=== PATIENT | female | born 1975 | race Caucasian/White ===

== ENCOUNTER 2016-03-28 05:09 | Inpatient (IN) | payer OTHER ==
[2016-03-25 12:24] LABS: HEMATOCRIT 40.1 % (36.0-47.0); HEMOGLOBIN 13.7 g/dL (12.0-15.5); MEAN CORPUSCULAR HEMOGLOBIN 31.6 pg (27.0-33.4); MEAN CORPUSCULAR HGB CONC 34.1 g/dL (32.0-36.0); MEAN CORPUSCULAR VOLUME 93 fl (80-97); RED BLOOD COUNT 4.32 10^6/uL (3.72-5.28); RED CELL DISTRIBUTION WIDTH 12.9 % (11.5-14.0); WHITE BLOOD COUNT 7.8 10^3/uL (4.0-10.5)
[2016-03-25 12:25] LABS: APPEARANCE,URINE CLEAR; BILIRUBIN,URINE NEGATIVE (NEGATIVE); GLUCOSE, URINE NEGATIVE (NEGATIVE); KETONES,URINE NEGATIVE (NEGATIVE); LEUKOCYTE ESTERASE,URINE NEGATIVE (NEGATIVE); NITRITE,URINE NEGATIVE (NEGATIVE); PROTEIN,URINE NEGATIVE (NEGATIVE); URINE SPECIFIC GRAVITY 1.008; UROBILINOGEN,URINE NEGATIVE mg/dL (<2.0)
[2016-03-25 12:48] LABS: ANION GAP 13 (5-19); BLOOD UREA NITROGEN 11 mg/dL (7-20); CALCIUM 9.6 mg/dL (8.4-10.2); CARBON DIOXIDE 27 mmol/L (22-30); CHLORIDE 103 mmol/L (98-107); GLUCOSE 74 mg/dL (75-110); POTASSIUM 4.5 mmol/L (3.6-5.0); SODIUM 142.6 mmol/L (137-145)
--- NOTE | 2016-03-26 00:08 | EKG REPORT ---
SEVERITY:- NORMAL ECG - SINUS RHYTHM : Confirmed by: Thomas Reyes 26-Mar-2016 00:07:53
[~2016-03-28 05:09] MED LIST: CEFAZOLIN SODIUM 1 GM in DEXTROSE 5%-WATER 50 ML IV PRN; LIDOCAINE 0.5% INJ-PF (5 MG/ML) 50 ML SDV INJ PRN; RINGERS SOLUTION,LACTATED 1,000 ML IV PRN
[2016-03-28] MEDS ORDERED: ALBUTEROL SULFATE 0.083% NEB 2.5 MG/3 ML AMPUL NEB ONE (06:07)
[2016-03-28] MEDS ORDERED: ACETAMINOPHEN 100 ML IV ONE (07:01)
[2016-03-28] MEDS ORDERED: PROPOFOL INJ 200 MG/20 ML VIAL IV ONE (07:01)
[2016-03-28] MEDS ORDERED: MIDAZOLAM 2 MG/2 ML INJ ONE (07:01)
[2016-03-28] MEDS ORDERED: HYDROMORPHONE HCL INJ/PF 2 MG/ML AMPULE ONE (07:01)
[2016-03-28] MEDS ORDERED: FENTANYL CITRATE INJ/PF 250 MCG/5 ML AMPULE ONE (07:01)
--- NOTE | 2016-03-28 09:08 | OPERATIVE REPORT E ---
Operative Report NAME: JOSIAH HUDSON : 1975 AGE: 40Y DATE OF SURGERY: 03/28/2016 ROOM: OR PREOPERATIVE DIAGNOSES: 1. UTERINE LEIOMYOMA. 2. DYSMENORRHEA. POSTOPERATIVE DIAGNOSES: 1. UTERINE LEIOMYOMA. 2. DYSMENORRHEA. OPERATION: Total vaginal hysterectomy. SURGEON: NICOL KEARNS M.D. COMPLICATIONS: None. ANESTHESIA: General endotracheal. ESTIMATED BLOOD LOSS: 100 mL. INDICATIONS FOR PROCEDURE: The patient has symptomatic uterine leiomyoma and was unresponsive to usual outpatient management. She desired definitive therapy and usual risks, expectations, complications including bleeding, infection, anesthesia and damage to the organs and tissues have been discussed with the patient who understood. She wishes to proceed. PROCEDURE: The patient was taken to the operating room and placed in the modified lithotomy position. Once adequate anesthesia was ascertained, prepped and draped in the usual sterile manner for a vaginal hysterectomy. Via posterior colpotomy incision, the posterior cul-de-sac was entered without difficulty. Uterosacral ligaments were cross-clamped, suture ligated and held and cervix was then circumscribed. Bladder was advanced sequentially throughout the case, retracted anteriorly with the *narrow tonja* retractor until ultimately entry into the anterior cul-de-sac was done without difficulty. The uterine vessels, upper broad ligament and pedicles were suture ligated and then free tied throughout the case with 0 Vicryl stitch. The uterus and cervix were handed off the operative field. Pedicles were confirmed to be dry after being suture ligated and free tied. No enterocele formation was noted. The vagina was then closed in an anterior-posterior fashion with 0 Vicryl stitch with good hemostasis confirmed. Good urine output at the completion of the procedure. The patient had had a Tee catheter placed preoperative as well as a surgical time-out performed and antibiotics given. All sponge and needle counts were correct at the completion of the procedure. The patient was taken to the recovery room in stable condition. DICTATING PHYSICIAN: NICOL KEARNS M.D. [id number] PHY#: [id number] ID: [id number] JOB#: [id number] ACCT: [id number] cc:NICOL KEARNS M.D. > [facility]
[2016-03-28] MEDS ORDERED: MORPHINE SULFATE 10 MG/ML INJ INJ PRN (09:31)
[2016-03-28] MEDS ORDERED: MORPHINE SULFATE 10 MG/ML INJ IM PRN (09:32)
[2016-03-28] MEDS ORDERED: PROMETHAZINE HCL INJ 25 MG/1 ML VIAL IM PRN (09:33)
[2016-03-28] MEDS: FENTANYL CITRATE INJ/PF 100 MCG/2 ML AMPUL ONE ×2 (09:40→09:50)
[2016-03-28] MEDS ORDERED: KETOROLAC TROMETHAMINE INJ/PF 30 MG/1 ML SDV ONE (09:47)
[2016-03-28] MEDS ORDERED: MEPERIDINE HCL/PF INJ 25 MG/1 ML DISP.SYRIN IV PRN (09:49)
[2016-03-28] MEDS ORDERED: PROMETHAZINE HCL INJ 25 MG/1 ML VIAL IV PRN ×2 (09:49)
[2016-03-28] MEDS ORDERED: MORPHINE SULFATE 10 MG/ML INJ IV PRN (09:49)
[2016-03-28] MEDS ORDERED: FENTANYL CITRATE INJ/PF 100 MCG/2 ML AMPUL IV PRN ×3 (09:49)
[2016-03-28] MEDS ORDERED: OXYCODONE-ACETAMINOPHEN 5-325 MG TABLET PO PRN ×2 (09:49)
[2016-03-28] MEDS ORDERED: DIPHENHYDRAMINE HCL 50 MG/ML VIAL IV PRN (09:49)
[2016-03-28] MEDS ORDERED: KETOROLAC TROMETHAMINE INJ/PF 30 MG/1 ML SDV IV ONE (09:51)
[2016-03-28] MEDS ORDERED: DIPHENHYDRAMINE HCL 25 MG CAPSULE PO PRN (10:48)
[2016-03-28] MEDS: MORPHINE SULFATE 10 MG/ML INJ INJ PRN ×2 (11:08→18:35)
[2016-03-28] MEDS ORDERED: ALBUTEROL SULFATE HFA (90 MCG/PUFF) 200 PUFF/8.5 GM MDI IH PRN (11:15)
[2016-03-28] MEDS: IBUPROFEN 800 MG TABLET PO SCH ×2 (13:42→18:44)
[2016-03-28] MEDS ORDERED: RINGERS SOLUTION,LACTATED 1,000 ML IV PRN ×2 (13:52→13:55)
[2016-03-28] MEDS ORDERED: LIDOCAINE 2% INJ-PF (20 MG/ML) 10 ML AMPUL ONE (14:00)
[2016-03-28] MEDS ORDERED: PHENYLEPHRINE HCL INJ/PF 10 MG/1 ML SDV ONE (14:00)
[2016-03-28] MEDS ORDERED: SUCCINYLCHOLINE CHLORIDE INJ 200 MG/10 ML VIAL ONE (14:00)
[2016-03-28] MEDS ORDERED: ONDANSETRON HCL INJ/PF 4 MG/2 ML SDV ONE (14:00)
[2016-03-28] MEDS ORDERED: DEXAMETHASONE SOD PHOSPHATE INJ 4 MG/1 ML VIAL ONE (14:00)
[2016-03-28] MEDS: CEFAZOLIN SODIUM 1 GM in DEXTROSE 5%-WATER 50 ML IV SCH ×2 (14:59→21:42)
[2016-03-28] MEDS: OXYCODONE-ACETAMINOPHEN 5-325 MG TABLET PO PRN (17:24)
[2016-03-28] MEDS ORDERED: CYCLOSPORINE 0.05% OPH EMULSIO 0.4 ML DROPERETTE OS SCH (18:00)
[2016-03-28] MEDS ORDERED: BENZOCAINE/MENTHOL SORE THROAT LOZENGE BUCCAL PRN (23:36)
[2016-03-29] MEDS ORDERED: BENZOCAINE/MENTHOL SORE THROAT LOZENGE BUCCAL PRN (00:24)
[2016-03-29] MEDS: OXYCODONE-ACETAMINOPHEN 5-325 MG TABLET PO PRN ×2 (03:02→08:00)
[2016-03-29 07:14] LABS: HEMATOCRIT 31.5 % (36.0-47.0); HGB HCT DIFFERENCE 1.5; MEAN CORPUSCULAR HEMOGLOBIN 32.4 pg (27.0-33.4); MEAN CORPUSCULAR HGB CONC 35.1 g/dL (32.0-36.0); MEAN CORPUSCULAR VOLUME 92 fl (80-97); RED BLOOD COUNT 3.41 10^6/uL (3.72-5.28); RED CELL DISTRIBUTION WIDTH 12.8 % (11.5-14.0); WHITE BLOOD COUNT 12.7 10^3/uL (4.0-10.5)
--- NOTE | 2016-03-29 08:43 | [facility] DISCHARGE SUMMARY E ---
[facility] Discharge Summary NAME: JOSIAH HUDSON AGE: 40Y ADMITTED: 03/28/2016 DISCHARGED: 03/29/2016 HISTORY: This is a 40-year-old female admitted with symptomatic uterine leiomyoma. She was admitted for definitive therapy with vaginal hysterectomy. HOSPITAL COURSE: Patient underwent vaginal hysterectomy. Estimated blood loss approximately 100 mL to 150 mL. Postoperative hematocrit was 31. She is ambulatory, regular diet, no evidence of DVT. Discharged hospital day #1, doing well. Pathology pending at time of dictation; clinically fibroids. Normal tubes and ovaries were encountered. PROCEDURE: Total vaginal hysterectomy. *------*: UTERINE LEIOMYOMA. DICTATING PHYSICIAN: NICOL KEARNS M.D. [id number] PHY#: [id number] ID: [id number] JOB#: [id number] ACCT: [id number] cc:NICOL KEARNS M.D. >
[2016-03-29 10:29] VITALS: BP 111/72
[2016-03-29] MEDS ORDERED: LORATADINE 10 MG TABLET PO SCH (12:00)
== END 2016-03-29 11:00 | disposition home or self-care (01) | DRG 743 ==
LOC: INOR 05:09 → 2N 10:23
PROVIDERS: ADMIT Specialist; ATTEND Specialist
PROC: 0UTC7ZZ Resection of Cervix, Via Natural or Artificial Opening (ICD-10-PCS; 2016-03-28)
PROC: 0UT97ZZ Resection of Uterus, Via Natural or Artificial Opening (ICD-10-PCS; principal; 2016-03-28 07:15)
DX: D25.1 Intramural leiomyoma of uterus (principal); F32.9 Major depressive disorder, single episode, unspecified; J45.909 Unspecified asthma, uncomplicated
CPT/HCPCS: 36415; 71020; 80048; 81001; 81025; 85027; 86850; 86900; 86901; 88307; 93005; 93010; 944; 94640; 94799; J0131; J0330; J0690; J1100; J1170; J1885; J2250; J2270; J2370; J2405; J2550; J2704; J3010; J3490; J7120